=== PATIENT | male | born 1985 | race Caucasian/White ===

== ENCOUNTER 2017-10-27 08:46 | Emergency (ER) | payer OTHER ==
[2017-10-27 09:28] VITALS: BP 110/60
--- NOTE | 2017-10-27 10:14 | UC ---
Abdominal Pain Male HPI - HPI Summary HPI Summary: nausea and vomiting x 2 days + diarrhea, mild abdominal pain , no fever, + chills - History of Current Complaint Chief Complaint: UCGI Stated Complaint: FEVER/CHILLS/ACHY Time Seen by Provider: 10/27/17 09:49 Hx Obtained From: Patient Onset/Duration: Gradual Onset, Lasting Days - 2, Still Present Timing: Constant Severity Initially: Moderate Severity Currently: Moderate Pain Intensity: 0 Pain Scale Used: 0-10 Numeric Location: Diffuse Radiates: No Character: Cramping Aggravating Factor(s): Food Alleviating Factor(s): Nothing Associated Signs And Symptoms: Positive: Decreased Appetite, Nausea, Vomiting, Diarrhea. Negative: Fever, Constipation, Blood in Stool, Urinary Symptoms - Allergies/Home Medications Allergies/Adverse Reactions: Allergies Allergy/AdvReac Type Severity Reaction Status Date / Time No Known Allergies Allergy Verified 10/27/17 09:22 Home Medications: Home Medications Ondansetron ODT TAB* [Zofran 4 MG Odt TAB*] 4 mg PO Q6H PRN 10/27/17 [History Confirmed 10/27/17] PMH/Surg Hx/FS Hx/Imm Hx Previously Healthy: Yes Other History Of: Negative For: HIV, Hepatitis B, Hepatitis C - Surgical History Surgical History: Yes Surgery Procedure, Year, and Place: b/l inguinal hernia - Family History Known Family History: Negative: Cardiac Disease, Hypertension, Renal Disease, Blood Disorder - Social History Alcohol Use: Occasionally Substance Use Type: None Smoking Status (MU): Light Every Day Tobacco Smoker Review of Systems Constitutional: Negative Skin: Negative Eyes: Negative ENT: Negative Respiratory: Negative Cardiovascular: Negative Gastrointestinal: Abdominal Pain, Vomiting, Diarrhea, Nausea Genitourinary: Negative Is Patient Immunocompromised?: No All Other Systems Reviewed And Are Negative: Yes Physical Exam Triage Information Reviewed: Yes Appearance: Well-Appearing, No Pain Distress, Well-Nourished Vital Signs: Initial Vital Signs Temp 98.8 F 10/27/17 09:24 Pulse 62 10/27/17 09:24 Resp 16 10/27/17 09:24 BP 110/60 10/27/17 09:24 Pulse Ox 97 10/27/17 09:24 Vital Signs Reviewed: Yes Eye Exam: Normal Eyes: Positive: Conjunctiva Clear ENT: Positive: Normal ENT inspection, Hearing grossly normal, Pharynx normal Neck exam: Normal Neck: Positive: Supple, Nontender, No Lymphadenopathy Respiratory: Positive: Chest non-tender, Lungs clear, Normal breath sounds Cardiovascular: Positive: RRR, No Murmur, Pulses Normal Abdominal Exam: Normal Abdomen Description: Positive: Nontender, Soft. Negative: CVA Tenderness (R), CVA Tenderness (L), Distended, Guarding Bowel Sounds: Positive: Present Musculoskeletal Exam: Normal Skin Exam: Normal Abd Pain Male Course/Dx - Differential Dx/Clinical Impression Provider Diagnoses: Gastroenteritis Discharge - Discharge Plan Condition: Stable Disposition: HOME Prescriptions: Ondansetron [Zofran Odt] 8 mg PO Q8H PRN #6 tab.rapdis PRN Reason: Nausea/Vomiting Patient Education Materials: Gastroenteritis (ED) Forms: *Work Release Referrals: Abby Mas PA [Primary Care Provider] - If Needed
== END 2017-10-27 10:06 | disposition home or self-care (01) ==
LOC: UCCORT 08:46
DX: K52.9 Noninfective gastroenteritis and colitis, unspecified (principal); Z72.0 Tobacco use
CPT/HCPCS: 99212; G0463

== ENCOUNTER 2018-11-08 09:13 | Emergency (ER) | payer OTHER ==
--- OUTSIDE RECORDS SUMMARY | 2018-11-08 09:26 | XMS REPORT | Continuity of Care Document ---
:1985 External Reference #:[id number] Author Name April Soto PNP-BC, OBSTETRICIAN, Ibclc Address [address] [facility] [address] [place] [address] Care Team Providers Name Role Phone April Soto PNP-BC, OBSTETRICIAN, Ibclc Care Team Information Sanitary Inspector Unavailable April Soto PNP-BC, OBSTETRICIAN, Ibclc Primary Care Physician Unavailable Payers Date Identification Numbers Payment Provider Subscriber Policy Number: [id number] Medicaid Brendan Omalley Group Name: 1 1 [facility] [address] PayID: [id number] [place] [address] Onset: 2012 Policy Number: [id number] [facility] Insurance Fund Brendan Omalley PayID: [id number] [place] [address] Advance Directives Description No Information Available Problems Date Description Provider Status Onset: 11/11/2012 Lesion of ulnar nerve Mohamud Key MD, Active FACS Onset: 11/11/2012 Wrist joint pain Mohamud Key MD, Active FACS Onset: 11/16/2017 Anxiety state April Soto PNP-BC, Active OBSTETRICIAN, Ibclc Onset: 11/16/2017 Attention deficit hyperactivity April Soto PNP-BC, Active disorder, combined type OBSTETRICIAN, Ibclc Onset: 11/16/2017 Malaise and fatigue April Soto PNP-BC, Active OBSTETRICIAN, Ibclc Onset: 11/16/2017 Tobacco user April Soto PNP-BC, Active OBSTETRICIAN, Ibclc Onset: 11/16/2017 Mild intermittent asthma April Soto PNP-BC, Active OBSTETRICIAN, Ibclc Onset: 11/16/2017 Adult health examination April Soto PNP-BC, Inactive OBSTETRICIAN, Ibclc Inactive: 03/01/2018 Onset: 11/16/2017 Hyperlipidemia screening April Soto PNP-BC, OBSTETRICIAN, Ibclc Inactive Inactive: 03/01/2018 Onset: 11/16/2017 Suspected diabetes mellitus April Soto PNP-BC, OBSTETRICIAN, Inactive Ibclc Inactive: 03/01/2018 Onset: 11/16/2017 Suspected sickle cell disease April Soto PNP-BC, OBSTETRICIAN, Inactive Ibclc Inactive: 03/01/2018 Family History Date Family Member(s) Observation Comments : (age Father due to Liver 40 Years) Disease Father due to () Alcoholic Cirrhosis Mother Anxiety Mother Depression Siblings 5 2 brothers with ADHD, Depressiona nd anxiety. Maternal Grandmother GASOLINE TESTER Tumors Benign brain tumor Social History Type Date Description Comments Sex Unknown Lives With Lives With Children Diet Patient follows no dietary restrictions Occupation Unemployed ADL's/IADL's Independent with all ADL's Tobacco Use Start: Unknown Current Cigarette Smoker 1 Pack Daily Cigarette Use Pack Years - 09 ETOH Use Occasionally consumes alcohol Tobacco Use Start: Unknown Light tobacco smoker (10 or fewer cigarettes/day) Recreational Drug Use Marijuana Smoking Status Reviewed: 10/20/18 Light tobacco smoker (10 or fewer cigarettes/day) Allergies, Adverse Reactions, Alerts Date Description Reaction Status Severity Comments 10/21/2012 [place] Active 09/02/2017 Tape Active Medications Medication Date Status Form Strength Qnty SIG Indications Ordering Provider Gabapentin 10/19/19 Active Capsules 300mg 60cap 1 by mouth M79.642 Charles, 19 s two times April, a day PNP-BC, OBSTETRICIAN, Ibclc Ventolin HFA 06/23/20 Active Aerosol 108(90Bas 8gm 1-2 puffs J45.20 Charles, 18 e) every 4 April, mcg/Act hours as PNP-BC, needed OBSTETRICIAN, Ibclc Flovent HFA 06/23/20 Active Aerosol 110mcg/Ac 36gm 2 puffs J45.20 Charles, 18 t once a day April, PNP-BC, OBSTETRICIAN, Ibclc No Active 06/23/20 Hx Unknown Medications 18 - 06/23/20 18 Azithromycin 06/23/20 Hx Tablets 250mg 6tabs 2 tabs J20.9 Charles, 18 - today and April, 06/28/20 then 1 tab PNP-BC, 18 every day OBSTETRICIAN, for 4 more Ibclc days Prednisone 06/23/20 Hx Tablets 20mg 5tabs 2 tabs J20.9 Charles 18 - today; 1 April, 06/28/20 tab for 2 PNP-BC, 18 days; 2 OBSTETRICIAN, days of Ibclc 1/2 tab Naproxen 03/01/20 Hx Tablets 500mg 90tab 1 by mouth M25.512 Charles, 18 - s twice a April, 06/23/20 day with PNP-BC, 18 food as OBSTETRICIAN, needed Ibclc Cyclobenzaprine 03/01/20 Hx Tablets 10mg 60tab 1 by mouth M25.512 Charles, HCL 18 - s three April, 06/23/20 times a PNP-BC, 18 day as OBSTETRICIAN, needed Ibclc muscle spasms/jeannie ulder pain Oxycodone-Acetam 03/01/20 Hx Tablets 5-325mg 14tab take one M25.512 Charles, inophen 18 - s tablet by April, 06/23/20 mouth PNP-BC, 18 every 8 OBSTETRICIAN, hours for Ibclc pain Reference #: [id number] Chantix Starting 12/26/19 Hx Tablets 0.5mg X 1pack 1 tab by F17.210 Jeannie , Angelika Trinidad & 1 mg mouth Rosalina, 01/25/20 X 42 every day M.D. 18 for week 1 and 2. 1 tab by mouth twice a day thereafete r Ventolin HFA 11/17/19 Hx Aerosol 108(90Bas 8gm 1-2 puffs J45.20 Charles 18 - e) every 4 April, 06/23/20 mcg/Act hours as PNP-BC, 18 needed OBSTETRICIAN, Ibclc Aerochamber Plus 11/17/19 Hx Misc 1unit as J45.20 Charles 18 - s directed April, 06/23/20 PNP-BC, 18 OBSTETRICIAN, Ibclc Atomoxetine HCL 09/02/19 Hx Capsules 40mg 60cap Take 1 F90.0 Jeannie 18 - s capsule by Rosalina, 01/10/20 mouth M.D. 18 daily for two weeks, then increase to twice daily for hyperactiv ity disorder No Active 12/04/19 Hx Unknown Medications 13 - 09/02/19 18 Ibuprofen Hx Capsules 200mg prn Unknown 00 - Unknown Aleve Hx Tablets 220mg 2 by mouth Unknown 00 - every day 06/23/20 as needed 18 Immunizations CPT Code Status Date Vaccine Lot # [id number] Given 09/02/2017 Tdap injection [id number] Given 01/05/2001 Hepatitis B Vaccine, Adolescent/High Risk Infant Dosage 18060 Given 01/05/2001 Hepatitis B Vaccine Pediatric/Adolescent 93516 Given 07/20/2000 Hepatitis B Vaccine Pediatric/Adolescent 91019 Given 06/15/2000 Hepatitis B Vaccine Pediatric/Adolescent 32622 Given 06/15/2000 Hepatitis B Randa Adoles For Intramuscular Use [id number] Refused 06/23/2018 Influenza Vaccine (Fluzone) Age 3 And Older 40178 Refused 09/02/2017 Influenza Virus Vaccine Quadrivalent Iiv4 Split Preser Free Id Vital Signs Date Vital Result Comment 10/19/2018 12:47pm BP Systolic 134 mmHg BP Diastolic 78 mmHg Body Temperature 99.0 F Heart Rate 94 /min Respiratory Rate 16 /min Height 72 inches 6'0" Weight 190.00 lb BMI (Body Mass Index) 25.8 kg/m2 BSA (Body Surface Area) 2.08 m2 [place] body weight in kilograms 81 kg O2 % BldC Oximetry 98 % 06/23/2018 10:14am BP Systolic Sitting Left Arm 148 mmHg BP Diastolic Sitting Left Arm 84 mmHg Body Temperature 96.9 F Heart Rate 68 /min Height 72 inches 6'0" Weight 189.00 lb BMI (Body Mass Index) 25.6 kg/m2 BSA (Body Surface Area) 2.08 m2 [place] body weight in kilograms 81 kg O2 % BldC Oximetry 96 % 03/01/2018 2:49pm BP Systolic 118 mmHg BP Diastolic 80 mmHg Body Temperature 97.6 F Heart Rate 69 /min Respiratory Rate 16 /min Height 72 inches 6'0" Weight 182.00 lb BMI (Body Mass Index) 24.7 kg/m2 BSA (Body Surface Area) 2.05 m2 [place] body weight in kilograms 81 kg O2 % BldC Oximetry 96 % 12/25/2017 11:36am BP Systolic Sitting Resting Right Arm 124 mmHg BP Diastolic Sitting Resting Right Arm 72 mmHg Heart Rate 80 /min Respiratory Rate 18 /min Height 72 inches 6'0" Weight 189.00 lb BMI (Body Mass Index) 25.6 kg/m2 BSA (Body Surface Area) 2.08 m2 [place] body weight in kilograms 81 kg 11/16/2017 3:44pm BP Systolic Sitting Right Arm 114 mmHg BP Diastolic Sitting Right Arm 76 mmHg Body Temperature 97.8 F Heart Rate 76 /min Height 72 inches 6'0" Weight 196.00 lb BMI (Body Mass Index) 26.6 kg/m2 BSA (Body Surface Area) 2.11 m2 [place] body weight in kilograms 81 kg O2 % BldC Oximetry 96 % 10/15/2017 4:14pm BP Systolic 118 mmHg BP Diastolic 80 mmHg Heart Rate 85 /min Height 72 inches 6'0" [place] body weight in kilograms 81 kg O2 % BldC Oximetry 98 % 09/09/2017 11:20am Heart Rate 84 /min Respiratory Rate 16 /min Height 72 inches 6'0" Weight 180.00 lb BMI (Body Mass Index) 24.4 kg/m2 BSA (Body Surface Area) 2.04 m2 [place] body weight in kilograms 81 kg O2 % BldC Oximetry 98 % 09/02/2017 3:30pm BP Systolic 132 mmHg BP Diastolic 86 mmHg Heart Rate 95 /min Height 72 inches Weight 179.12 lb BMI (Body Mass Index) 24.3 kg/m2 BSA (Body Surface Area) 2.03 m2 [place] body weight in kilograms 81 kg O2 % BldC Oximetry 98 % 10/21/2012 9:38am BP Systolic Sitting Right Arm 122 mmHg BP Diastolic Sitting Right Arm 64 mmHg Height 73 inches 6'1" Weight 177.00 lb BMI (Body Mass Index) 23.3 kg/m2 Results Test Date Facility Test Result H/L Range Note LDL Cholesterol 11/16/2017 [facility] Cholesterol 204 mg/dL High <200 1, 2 Profile [address] [place] [address] [phone] Triglycerides 115 mg/dL <150 3 HDL Cholesterol 53 mg/dL >40 4 LDL-Cholesterol 128 mg/dL < 100 5 Reflex add FT3? Y Reflex add FT4? Y Glycohemoglobin A1c 11/16/2017 [facility] Glycohemoglobin 5.5 % N 4.2-6.[address] (A1c) [place], [place] [id number] [phone] eAG 111 mg/dL CBS W/Automated Diff 11/16/2017 [facility] White Blood 9.8 K/uL N 3.4-10.[address] Count [place], [place] [id number] [phone] Red Blood Count 5.24 M/uL N 4.20-5.80 Hemoglobin 16.1 gm/dL N 12.8-17.0 Hematocrit 45.2 % N 38.0-48.0 Mean Cell Volume 86.3 fl N 80.0-96.0 Mean Corpuscular HGB 30.7 pg N 27.0-33.0 Mean Corpuscular HGB Conc 35.6 g/dL N 31.7-36.0 Platelet Count 295 K/uL N 155-360 Red Cell Distri Width SD 39.7 fl N 36-51 Red Cell Distri Width %CV 12.8 % N 11.6-15.8 Mean Platelet Volume 9.4 fL N 6.6-10.6 Neut% 69.0 % N 33.0-73.0 Lymph % 22.4 % N 20.0-42.0 [place] % 6.5 % N 0.0-10.0 Eo% 1.6 % N 0.0-6.6 Bas% 0.5 % N 0.0-1.1 Neut# 6.73 K/uL N 1.8-7.0 Lymph # 2.19 K/uL N 1.0-4.0 [place] # 0.63 K/uL N 0.0-0.8 Eos # 0.16 K/uL N 0.0-0.5 Baso # 0.05 K/uL N 0.0-0.1 TSH Reflex FT4 11/16/2017 [facility] Thyroid Stim 0.89 uIU/mL N 0.30-4.20 And/Or FT3 [address] [place] [address] [phone] Reflex add FT3? Y Reflex add FT4? Y Comprehensive Metabolic 11/16/2017 [facility] Glucose 80 mg/dL N 74-[address] [place] [address] [phone] BUN 11 mg/dL N 7-18 Creatinine 1.1 mg/dL N 0.6-1.3 Glom Filtration Rate, Estimate >60 mL/min >60 If >60 mL/min >60 7 BUN/Creat 10.0 ratio Sodium 139 mmol/L N 136-145 Potassium 3.4 mmol/L Low 3.5-5.1 Chloride 104 mmol/L N 98-107 Carbon Dioxide 29 mmol/L N 21-32 Anion Gap 6 mEq/L Low 8-16 Calcium 9.2 mg/dL N 8.5-10.1 Total Protein 7.8 g/dL N 6.4-8.2 Albumin 4.1 g/dL N 3.4-5.0 Globulin 3.7 g/dL N 1.9-4.3 Alb/Glob 1.1 ratio Bilirubin,Total 0.5 mg/dL N 0.2-1.0 Sgot/Ast 24 U/L N 15-37 SGPT/Alt 63 U/L N 12-78 Alkaline Phosphatase 81 U/L N 45-117 Reflex add FT3? Y Reflex add FT4? Y Laboratory test finding 11/16/2017 [facility] Slide Review (SEE NOTE) [address] [place] [id number] [phone] 1 Z13.220 Z13.1 Z13.0 R53.83 Z00.01 2 Reference Guidelines*: Desirable: ........... < 200 mg/dL Borderline High: ..... 200-239 mg/dL High: ................ >=240 mg/dL * The National Cholesterol Education Program (NCEP) 3 Reference Guidelines*: Normal: ............. < 150 mg/dL Borderline High: .... 150-199 mg/dL High: ............... 200-499 mg/dL Very High: .......... > 500 mg/dL * Source: National Cholesterol Education Program (NCEP) 4 Reference Guidelines*: Low HDL: ..... < 40 mg/dL Normal: ..... 40-60 mg/dL Desirable: ... > 60 mg/dL *The National Cholesterol Education Program(NCEP) 5 Reference Guidelines*: Optimal:........... <100 mg/dL Near Optimal....... 100-129 mg/dL Borderline High.... 130-159 mg/dL High............... 160-189 mg/dL Very High.......... >=190 mg/dL * Source: National Cholesterol Education Program (NCEP) 6 Elevated levels of HbA1c suggest the need for more aggressive treatment of glycemia. The [place] [employer] recommends that a primary goal of therapy should be a HbA1c of <7% and that physicians should re-evaluate the treatment regimen in patients with HbA1c values consistently >8%. 7 Note: Persistent reduction for 3 months or more in an eGFR <60 mL/min/1.73 m2 defines CKD. Patients with eGFR values >/=60 mL/min/1.73 m2 may also have CKD if evidence of persistent proteinuria is present. The original MDRD equation for estimated GFR is not valid for patients less than 18 years of age. Additional information may be found at www.kdoqi.org. 8 Instrument flagged sample for slide review. Less than 10% Bands seen, no other immature WBC's seen. RBC morphology essentially normal. Platelet estimate=NORMAL Procedures Date Code Description Status 11/30/2012 40533 Nerve Conduction, Sensory Completed 11/30/2012 26759 Nerve Conduction, Motor W/F-Wave Study Completed 11/30/2012 41622 Needle Electromyography Complete, Five Or More Muscles Completed Studied 10/21/2012 92744 Radiology, Forearm: Two Views Completed Encounters Type Date Location Provider Dx Diagnosis Office Visit 10/19/2018 Family April Blount, M79.642 Pain in left hand 1:[address]p [address] PNP-BC, OBSTETRICIAN, Ibclc G56.02 Carpal tunnel syndrome, left upper limb Office Visit 06/23/2018 10:00a April Boudreaux, J20.9 Acute bronchitis, [address] RD PNP-BC, OBSTETRICIAN, unspecified Ibclc J45.20 Mild intermittent asthma, uncomplicated F17.210 Nicotine dependence, cigarettes, uncomplicated Office Visit 03/01/2018 2:45p Family Kvng Soto M25.[address] Pain in left [address] April, shoulder PNP-BC, OBSTETRICIAN, Ibclc Office Visit 12/25/2017 11:30a Family Medicine Chace, F17.210 Nicotine [place] MASHA Cast dependence, cigarettes, uncomplicated Office Visit 11/16/2017 3:45p Family Medicine Charles, Z00.01 Encounter for Maverick Chen, general adult PNP-BC, OBSTETRICIAN, medical exam w Ibclc abnormal findings F41.9 Anxiety disorder, unspecified F90.2 Attention-deficit hyperactivity disorder, combined type R53.83 Other fatigue F17.210 Nicotine dependence, cigarettes, uncomplicated J45.20 Mild intermittent asthma, uncomplicated Z13.0 Encntr screen for dis of the bld/bld-form org/immun mechnsm Z13.1 Encounter for screening for diabetes mellitus Z13.220 Encounter for screening for lipoid disorders Office Visit 10/15/2017 4:15p Family April Blount, F41.9 Anxiety disorder, Maverick BUTTERFIELD PNP-BC, OBSTETRICIAN, unspecified Ibclc F90.2 Attention-deficit hyperactivity disorder, combined type M25.562 Pain in left knee Office Visit 09/09/2017 Family Soto F90.2 Attention-deficit 10:30a Medicine Maverick Chen, hyperactivity disorder, RD PNP-BC, OBSTETRICIAN, combined type Ibclc F41.9 Anxiety disorder, unspecified F33.1 Major depressive disorder, recurrent, moderate M25.562 Pain in left knee Office Visit 09/02/2017 3:15p Family Abby Womack, F41.9 Anxiety disorder, Maverick FLANAGAN unspecified F90.0 Attn-defct hyperactivity disorder, predom inattentive type Z23 Encounter for immunization G47.9 Sleep disorder, unspecified Z72.0 Tobacco use Office Visit 12/03/2012 8:15a Orthopaedic Office Mohamud Key 354.2 Lesion Ulnar MD Viviane, FACS Nerve 719.43 Pain Joint Forearm Office Visit 11/11/2012 9:15a Orthopaedic Office Mohamud Key 719.43 Pain Jorge Pan MD, FACS Forearm 354.2 Lesion Ulnar Nerve Office Visit 10/21/2012 9:45a Orthopaedic Office Mohamud Key 719.43 Pain Joint MD Viviane, FACS Forearm 719.43 Pain Joint Forearm E917.3 Furniture Without Subsequent Fall Plan of Treatment 10/19/2018 - Charles, April, PNP-BC, OBSTETRICIAN, OttwkK59.642 Pain in left handNew Medication:Gabapentin 300 mg - 1 by mouth two times a dayNew Orders:EMG w/Nerve Conduct Study, Upper, Ordered: 10/19/18Comments:lets see how you do on the gabapentin and we'll increase it if you tolerate it but feel like it wears off during the day.once we get the study set up we'll give you a call.G56.02 Carpal tunnel syndrome, left upper limbNew Orders:EMG w/Nerve Conduct Study, Upper, Ordered: 10/19/18
[2018-11-08 10:30] VITALS: BP 136/70
--- NOTE | 2018-11-08 11:15 | UC ---
UC General HPI - HPI Summary HPI Summary: 1. day 7 of sinus congestion that has suddenly gotten much worse with sinus pain , green drainage, sore throat and L ear pain. no fever. hx sinus infection in past and this is the same. 2. pain and swelling R middle finger post bowling 2 weeks ago. - History of Current Complaint Chief Complaint: UCEar Stated Complaint: EARS,SORE THROAT,COUGH Time Seen by Provider: 11/08/18 11:06 Hx Obtained From: Patient Timing: Constant Pain Intensity: 6 Associated Signs & Symptoms: Negative: Fever, Headache - Allergy/Home Medications Allergies/Adverse Reactions: Allergies Allergy/AdvReac Type Severity Reaction Status Date / Time No Known Allergies Allergy Verified 11/08/18 10:24 Home Medications: Home Medications Albuterol HFA INHALER* [Ventolin HFA Inhaler*] 1 puff Q6HR PRN 11/08/18 [ History Confirmed 11/08/18] Gabapentin CAP(*) [Neurontin 100 mg CAP(*)] 300 mg TID 11/08/18 [History Confirmed 11/08/18] PMH/Surg Hx/FS Hx/Imm Hx Previously Healthy: Yes Other History Of: Negative For: HIV, Hepatitis B, Hepatitis C - Surgical History Surgical History: Yes Surgery Procedure, Year, and Place: b/l inguinal hernia - Family History Known Family History: Negative: Cardiac Disease, Hypertension, Renal Disease, Blood Disorder - Social History Occupation: Employed Full-time Alcohol Use: Occasionally Substance Use Type: Marijuana Substance Use Comment - Amount & Last Used: EVERY DAY Smoking Status (MU): Heavy Every Day Tobacco Smoker Type: Cigarettes Amount Used/How Often: 1/2 PPD Review of Systems All Other Systems Reviewed And Are Negative: Yes ENT: Positive: Sore Throat, Ear Ache - L, Nasal Discharge, Sinus Congestion, Sinus Pain/Tenderness Musculoskeletal: Positive: Arthralgia - R middle finger Physical Exam Triage Information Reviewed: Yes Appearance: Well-Appearing Vital Signs: Initial Vital Signs Temp 97.5 F 11/08/18 10:25 Pulse 71 11/08/18 10:25 Resp 16 11/08/18 10:25 BP 136/70 11/08/18 10:25 Pulse Ox 100 11/08/18 10:25 Vital Signs Reviewed: Yes Eyes: Positive: Conjunctiva Clear ENT: Positive: Pharynx normal, Nasal congestion, TMs normal, Sinus tenderness. Negative: Nasal drainage Neck: Positive: Supple, Nontender, No Lymphadenopathy Respiratory: Positive: Lungs clear, Normal breath sounds, No respiratory distress Cardiovascular: Positive: RRR, No Murmur Abdomen Description: Positive: Nontender Bowel Sounds: Positive: Present Musculoskeletal: Positive: Other: - R middle finger with swelling and tenderness PIP joint. No joint laxity but painful with streesing of ligaments at the PIP joint. Not red or hot and finger has full s/v/m function. resdt of hand is unremarkable. Neurological: Positive: Alert Psychological: Positive: Age Appropriate Behavior Skin Exam: Normal Course/Dx - Course Course Of Treatment: PA procedure: volar splint R middle finger. s/v pre and post splint. - Differential Dx - Multi-Symptom Differential Diagnoses: Other - URI s/s's worse and c/w sinusitis. - Diagnoses Provider Diagnosis: Sinusitis, Sprain, finger Discharge - Sign-Out/Discharge Documenting (check all that apply): Patient Departure All imaging exams completed and their final reports reviewed: Yes - Discharge Plan Condition: Stable Disposition: HOME Prescriptions: Amoxicillin/Clavulanate TAB* [Augmentin TAB 875*] 875 mg PO BID 10 Days #20 tab Patient Education Materials: Sinusitis (ED), Finger Sprain (ED) Referrals: April Soto NP [Primary Care Provider] - 7 Days - Billing Disposition and Condition Condition: STABLE Disposition: Home - Attestation Statements Provider Attestation: I was available for consult. This patient was seen by the YUNIER. The patient was not presented to, seen by, or examined by me. -Ljj Addendum entered and electronically signed by Mariama Salmon PA 11/08/18 11:32 : Addendum Addendum: IMPRESSION: Soft tissue swelling without fracture. read by radiologist of R middle finger.
== END 2018-11-08 12:00 | disposition home or self-care (01) ==
LOC: UCCORT 09:13
DX: J32.9 Chronic sinusitis, unspecified (principal); F17.210 Nicotine dependence, cigarettes, uncomplicated; S63.612A Unspecified sprain of right middle finger, initial encounter; X50.9XXA Other and unspecified overexertion or strenuous movements or postures, initial encounter; Y92.9 Unspecified place or not applicable
CPT/HCPCS: 73140; 99212; G0463

== ENCOUNTER 2019-11-18 07:12 | Emergency (ER) | payer OTHER ==
--- NOTE | 2019-11-18 07:31 | UC ---
Respiratory Complaint HPI - HPI Summary HPI Summary: SEVERAL DAYS OF COUGH, SHORTNESS OF BREATH, CHEST CONGESTION, MYALGIAS, CHILLS/ HOT FLASHES, RUNNY NOSE AND WHEEZE. HAS A HISTORY OF ASTHMA AND STATES HIS ALBUTEROL IS NOT HELPING. DENIES ANY HISTORY OF TRAVEL. NO KNOWN EXPOSURE TO ANYONE WITH COVID19. - History of Current Complaint Chief Complaint: UCRespiratory Stated Complaint: RESP/COUGH Time Seen by Provider: 11/18/19 07:25 Hx Obtained From: Patient Onset/Duration: Gradual Onset, Lasting Days, Still Present Timing: Constant Severity Initially: Moderate Severity Currently: Moderate Pain Intensity: 0 Pain Scale Used: 0-10 Numeric Character: Cough: Productive Aggravating Factors: Nothing Alleviating Factors: Nothing Associated Signs And Symptoms: Positive: Dyspnea, Chills, Wheezing, URI, Nasal Congestion - Allergies/Home Medications Allergies/Adverse Reactions: Allergies Allergy/AdvReac Type Severity Reaction Status Date / Time Adhesive Tape [Paper Tape] Allergy Rash Verified 11/18/19 07:19 Home Medications: Home Medications Albuterol HFA INHALER* [Ventolin HFA Inhaler*] 2 puff INH Q4H PRN #1 mdi [Rx] predniSONE 50 mg TAB [Deltasone 50 mg TAB] 50 mg PO DAILY #5 tab 11/18/19 [Rx] PMH/Surg Hx/FS Hx/Imm Hx Respiratory History: Asthma Other History Of: Negative For: HIV, Hepatitis B, Hepatitis C - Surgical History Surgical History: Yes Surgery Procedure, Year, and Place: Bilateral Inguinal Herniorrhaphy, ~ [place] - Family History Known Family History: Negative: Cardiac Disease, Hypertension, Renal Disease, Blood Disorder - Social History Alcohol Use: Occasionally Substance Use Type: Marijuana Substance Use Comment - Amount & Last Used: Daily Smoking Status (MU): Heavy Every Day Tobacco Smoker Type: Cigarettes Amount Used/How Often: 1/2 PPD Length of Time of Smoking/Using Tobacco: Since Age 17 Household Exposure Type: Cigarettes Review of Systems All Other Systems Reviewed And Are Negative: Yes Constitutional: Positive: Chills, Fatigue ENT: Positive: Sore Throat, Nasal Discharge Respiratory: Positive: Shortness Of Breath, Cough, Other - WHEEZE Cardiovascular: Positive: Negative Gastrointestinal: Positive: Negative Musculoskeletal: Positive: Myalgia Physical Exam Triage Information Reviewed: Yes Appearance: Well-Appearing, No Pain Distress, Well-Nourished Vital Signs: Laboratory Tests 11/18/19 11/18/19 07:44 07:48 Influenza A (Rapid) Negative Influenza B (Rapid) Negative Group A Strep Rapid Negative Vital Signs Reviewed: Yes Eyes: Positive: Conjunctiva Clear ENT: Positive: Hearing grossly normal, Pharynx normal, TMs normal Neck: Positive: Supple, Nontender, No Lymphadenopathy Respiratory: Positive: No respiratory distress, No accessory muscle use, Decreased breath sounds, Wheezing - DIFFUSE INTERMITTENT Cardiovascular Exam: Normal Abdomen Description: Positive: Soft Musculoskeletal: Positive: No Edema Neurological: Positive: Alert Psychological: Positive: Age Appropriate Behavior Skin: Negative: Rashes Respiratory Course/Dx - Course Course Of Treatment: PATIENT PRESENTATION CONSISTENT WITH AN ASTHMA EXACERBATION. WILL COVER WITH PREDNISONE AND REFILL HIS ALBUTEROL. GIVEN PATIENT'S CONSTELLATION OF SYMPTOMS AND CONCERN FOR COVID 19 [facility] WAS SENT FOR TESTING TODAY. PATIENT IS DISCHARGED HOME TO SELF-ISOLATION PENDING RESULTS. - Differential Dx/Diagnosis Provider Diagnosis: Asthma exacerbation Discharge ED - Sign-Out/Discharge Documenting (check all that apply): Patient Departure All imaging exams completed and their final reports reviewed: No Studies - Discharge Plan Condition: Stable Disposition: HOME Prescriptions: Albuterol HFA INHALER* [Ventolin HFA Inhaler*] 2 puff INH Q4H PRN #1 mdi PRN Reason: Shortness Of Breath predniSONE 50 mg TAB [Deltasone 50 mg TAB] 50 mg PO DAILY #5 tab Patient Education Materials: Asthma (ED) Referrals: April Soto, [facility] [employer]ER [Primary Care Provider] - If Needed Additional Instructions: FLU NEGATIVE. STREP NEGATIVE. TESTING FOR COVID-19 COMPLETED TODAY. YOU SHOULD EXPECT RESULTS IN 2-6 DAYS. YOU ARE BEING DISCHARGED TO SELF-ISOLATION AT HOME PENDING RESULTS. CALL 911 IF YOU DEVELOP WORSENING RESPIRATORY DISTRESS, FEVER , PAIN OR ANY OTHER CONCERNING SYMPTOMS. TAKE THE PREDNISONE AND USE YOUR INHALER PRESCRIBED TO COVER FOR ASTHMA EXACERBATION. SEEK FOLLOW-UP IF YOU ARE NOT IMPROVING WITH THIS TREATMENT. - Billing Disposition and Condition Condition: STABLE Disposition: Home
[2019-11-18 07:54] VITALS: BP 131/71
[2019-11-18 08:00] LABS: Influenza A Molecular Negative (Negative); Influenza B Molecular Negative (Negative)
--- NOTE | 2019-11-23 08:23 | UC ---
- Progress Note Progress Note: Your coronavirus test was negative You no longer need to self quarantine Recommend continue to social distance If your symptoms persist or worsen, recommend follow up with your PCP or return to urgent care Course/Dx - Diagnoses Provider Diagnoses: Asthma exacerbation Discharge ED - Sign-Out/Discharge Documenting (check all that apply): Post-Discharge Follow Up All imaging exams completed and their final reports reviewed: No Studies - Discharge Plan Condition: Stable Disposition: HOME Prescriptions: Albuterol HFA INHALER* [Ventolin HFA Inhaler*] 2 puff INH Q4H PRN #1 mdi PRN Reason: Shortness Of Breath predniSONE 50 mg TAB [Deltasone 50 mg TAB] 50 mg PO DAILY #5 tab Patient Education Materials: Asthma (ED) Forms: *Work Release Referrals: April Soto NP [Primary Care Provider] - If Needed Additional Instructions: FLU NEGATIVE. STREP NEGATIVE. COVID NEGATIVE TAKE THE PREDNISONE AND USE YOUR INHALER PRESCRIBED TO COVER FOR ASTHMA EXACERBATION. SEEK FOLLOW-UP IF YOU ARE NOT IMPROVING WITH THIS TREATMENT. - Billing Disposition and Condition Condition: STABLE Disposition: Home
== END 2019-11-18 08:31 | disposition home or self-care (01) ==
LOC: UCCORT 07:12
DX: J45.901 Unspecified asthma with (acute) exacerbation (principal); R09.81 Nasal congestion; Z20.828 Contact with and (suspected) exposure to other viral communicable diseases; Z91.048 Other nonmedicinal substance allergy status; F17.210 Nicotine dependence, cigarettes, uncomplicated
CPT/HCPCS: 87651; 99212; G0463; U0002